=== PATIENT | male | born 1945 | race Caucasian/White ===

== ENCOUNTER 2017-02-10 11:23 | Emergency (ER) | payer OTHER ==
[~2017-02-10] VITALS: Ht 177.8 cm; Wt 102.0 kg
[~2017-02-10 11:23] MED LIST: ASPI81TA81; BUSP5TAB PO; CITA10TA4 PO; CLOP75TA PO; GUAI400T32 PO; LEVO50TA4 PO; OMEP40CA2 PO; PRAV40TA2 PO; PRIM50TA5 PO; [UNRECOGNIZED DRUG - REMARK]
[2017-02-10 11:25] VITALS: BP 175/111; PULSE 82; RESP 16; TEMP 97.7; O2SAT 99
[2017-02-10] MEDS ORDERED: PAXI10TA8 PO (11:49)
[2017-02-10] MEDS ORDERED: BUSP10TA PO (11:49)
[2017-02-10] MEDS ORDERED: SODIUM CHLORIDE 0.9% FLUSH 10 ML FLUSH IVF PRN (12:00)
--- NOTE | 2017-02-10 12:04 | PD ---
HPI Chief Complaint: Medical Clearance Time Seen by Provider: 11:46 Travel History International Travel<30 days: No Contact w/Intl Traveler<30days: No Traveled to known affect area: No History of Present Illness HPI Patient comes in for evaluation of his elevated blood pressure at the advice of his primary care doctor, Dr. Jeffrey. Patient states over the past year he's been experiencing dyspnea on exertion that was being treated with an inhaler that initially showed some improvement of his symptoms. Patient reports he can only walk a few feet without getting short of breath. reports that he had lost weight which improved his breathing however he is since gained the weight back causing him to have the same breathing problems. Patient also reports intermittent headaches over the past 2 or more months in the frontal lobe without radiation. Patient states headaches become more constant over the past month. Patient states he was taking ibuprofen for these that was helping, however they stopped helping and he quit taking it about a week ago. Patient denies any chest pain, neck pain, change in vision, dizziness, bowel pain, loss change in bowel or bladder, back pain, or numbness or tingling anywhere. Patient reports that he was sent in by his primary care doctor to make sure it wasn't something more significant than just "anxiety". Patient states that he does not always stay in the hospital secondary to having company coming over later today. PFSH Past Medical History Hx Anticoagulant Therapy: Yes (PLAVIX) Arthritis: Yes Asthma: No Blood Disorders: No Anxiety: Yes Depression: No Heart Rhythm Problems: Yes Cancer: No Cardiac Catheterization: Yes Cardiovascular Problems: Yes High Cholesterol: Yes Chest Pain: Yes Congestive Heart Failure: No COPD: Yes Cerebrovascular Accident: Yes (TIA) Diabetes: No Diminished Hearing: No Endocrine: Yes Gastrointestinal Disorders: Yes (GERD) GERD: Yes Genitourinary: No Hepatitis: No Hiatal Hernia: No Hypertension: Yes Immune Disorder: No Implanted Vascular Access Dvce: Yes Musculoskeletal: Yes (Back) Neurologic: Yes (Tremors) Psychiatric: No Reproductive: No Respiratory: Yes Seizures: No Sleep Apnea: No Thyroid Disease: Yes Tetanus Vaccination: > 5 Years Influenza Vaccination: Yes PNEUMOCCOCAL Vaccine (Year): 1 Past Surgical History Abdominal Surgery: No AICD: No Body Medical Devices: Spinal Chord Stimulator Cardiac Surgery: No Coronary Artery Bypass Graft: No Eye Surgery: No Joint Replacement: No Neurologic Surgery: Yes (spinal stimulator placed 2011/ REPLACED 2012) Oral Surgery: No Pacemaker: No Thoracic Surgery: No Other Surgery: Yes Social History Alcohol Use: No Tobacco Use: No Substance Use: No Allergies-Medications (Allergen,Severity, Reaction): Coded Allergies: amoxicillin (Unverified Allergy, Unknown, 02/10/17) PT DOES NOT KNOW THE REASON HE IS ALLERGIC Reported Meds & Prescriptions Reported Meds & Active Scripts Active Hydrochlorothiazide 12.5 Mg Cap 12.5 Mg PO DAILY Reported Paxil (Paroxetine HCl) 10 Mg Tab 40 Mg PO DAILY Buspirone (Buspirone HCl) 10 Mg Tab 10 Mg PO TID [brething tx] Guaifenesin 400 Mg Tab 1,200 Mg PO PRN Primidone 50 Mg Tab 50 Mg PO BID Buspirone (Buspirone HCl) 5 Mg Tab 5 Mg PO TID Omeprazole 40 Mg Cap 40 Mg PO DAILY Levothyroxine (Levothyroxine Sodium) 50 Mcg Tab 50 Mcg PO DAILY Clopidogrel (Clopidogrel Bisulfate) 75 Mg Tab 75 Mg PO DAILY Citalopram (Citalopram Hydrobromide) 10 Mg Tab 10 Mg PO DAILY Aspir-81 (Aspirin) 81 Mg Tabdr Pravastatin 40 Mg Tab 40 Mg PO DAILY Review of Systems Except as stated in HPI: all other systems reviewed are Neg Physical Exam Narrative GENERAL: Well-developed, overly nourished, in no acute distress, and non-ill appearing. Patient does seem somewhat anxious. SKIN: Focused skin assessment warm and dry. HEAD: Atraumatic. Normocephalic. EYES: Pupils equal and round. EOMI. No scleral icterus. No injection or drainage. ENT: No nasal bleeding or discharge. Mucous membranes pink and moist. NECK: Trachea midline. No JVD. Supple. No nuclear rigidity. CARDIOVASCULAR: Regular rate and rhythm. No murmur appreciated. RESPIRATORY: No accessory muscle use. No respiratory distress. Clear to auscultation. Breath sounds equal bilaterally. GASTROINTESTINAL: Abdomen soft, non-tender, nondistended, and no guarding. Hepatic and splenic margins not palpable. Normal bowel sounds 4. No pulsatile mass. MUSCULOSKELETAL: No obvious deformities. No clubbing. No cyanosis. No edema. Full range of motion. NEUROLOGICAL: Awake and alert. No obvious cranial nerve deficits. Motor grossly within normal limits. Normal speech. PSYCHIATRIC: Appropriate mood and affect; insight and judgment normal. Data Data Last Documented VS Vital Signs Date Time Temp Pulse Resp B/P (MAP) Pulse Ox O2 Delivery O2 Flow Rate FiO2 02/10/17 12:44 78 20 153/91 (111) 93 Room Air 02/10/17 11:25 97.7 Orders Orders Complete Blood Count With Diff (02/10/17 11:55) Comprehensive Metabolic Panel (02/10/17 11:55) B-Type Natriuretic Peptide (02/10/17 11:55) Act Partial Throm Time (Ptt) (02/10/17 11:55) Prothrombin Time / Inr (Pt) (02/10/17 11:55) Magnesium (Mg) (02/10/17 11:55) Ckmb (Isoenzyme) Profile (02/10/17 11:55) Troponin I (02/10/17 11:55) Urinalysis - C+S If Indicated (02/10/17 11:55) Iv Access Insert/Monitor (02/10/17 11:55) Electrocardiogram (02/10/17 11:55) Ecg Monitoring (02/10/17 11:55) Oximetry (02/10/17 11:55) Oxygen Administration (02/10/17 11:55) Chest, Single Ap (02/10/17 11:55) Sodium Chloride 0.9% Flush (Ns Flush) (02/10/17 12:00) Ct Brain W/O Iv Contrast(Rout) (02/10/17 11:55) Resp Home Oxygen Walk Test (02/10/17 ) Thyroid Stimulating Hormone (02/10/17 12:02) Lorazepam Inj (Ativan Inj) (02/10/17 12:15) Hydrochlorothiazide (Microzide) (02/10/17 14:30) Ed Discharge Order (02/10/17 14:30) Labs Laboratory Tests Test 02/10/17 12:00 02/10/17 12:45 White Blood Count 8.2 TH/MM3 Red Blood Count 4.79 MIL/MM3 Hemoglobin 15.5 GM/DL Hematocrit 43.6 % Mean Corpuscular Volume 90.9 FL Mean Corpuscular Hemoglobin 32.3 PG Mean Corpuscular Hemoglobin Concent 35.5 % Red Cell Distribution Width 13.2 % Platelet Count 172 TH/MM3 Mean Platelet Volume 7.8 FL Neutrophils (%) (Auto) 77.9 % Lymphocytes (%) (Auto) 13.1 % Monocytes (%) (Auto) 6.9 % Eosinophils (%) (Auto) 1.8 % Basophils (%) (Auto) 0.3 % Neutrophils # (Auto) 6.4 TH/MM3 Lymphocytes # (Auto) 1.1 TH/MM3 Monocytes # (Auto) 0.6 TH/MM3 Eosinophils # (Auto) 0.1 TH/MM3 Basophils # (Auto) 0.0 TH/MM3 CBC Comment DIFF FINAL Differential Comment Prothrombin Time 11.0 SEC Prothromb Time International Ratio 1.1 RATIO Activated Partial Thromboplast Time 24.0 SEC Blood Urea Nitrogen 18 MG/DL Creatinine 0.84 MG/DL Random Glucose 93 MG/DL Total Protein 7.2 GM/DL Albumin 3.9 GM/DL Calcium Level 9.0 MG/DL Magnesium Level 2.3 MG/DL Alkaline Phosphatase 65 U/L Aspartate Amino Transf (AST/SGOT) 21 U/L Alanine Aminotransferase (ALT/SGPT) 29 U/L Total Bilirubin 0.2 MG/DL Sodium Level 139 MEQ/L Potassium Level 4.3 MEQ/L Chloride Level 105 MEQ/L Carbon Dioxide Level 25.0 MEQ/L Anion Gap 9 MEQ/L Estimat Glomerular Filtration Rate 91 ML/MIN Total Creatine Kinase 95 U/L Troponin I LESS THAN 0.02 NG/ML B-Type Natriuretic Peptide 51 PG/ML Thyroid Stimulating Hormone 3rd Gen 2.160 uIU/ML Urine Color LIGHT-YELLOW Urine Turbidity CLEAR Urine pH 6.0 Urine Specific [place] 1.006 Urine Protein NEG mg/dL Urine Glucose (UA) NEG mg/dL Urine Ketones NEG mg/dL Urine Occult Blood NEG Urine Nitrite NEG Urine Bilirubin NEG Urine Urobilinogen LESS THAN 2.0 MG/DL Urine Leukocyte Esterase MOD Urine RBC LESS THAN 1 /hpf Urine WBC 4 /hpf Urine Mucus FEW /lpf Microscopic Urinalysis Comment CULT NOT INDICATED MDM Medical Decision Making Medical Screen Exam Complete: Yes Emergency Medical Condition: Yes Interpretation(s) EKG reviewed by Dr. Cole shows sinus rhythm with occasional PVCs. Ventricular rate is 77. No STEMI. Last Impressions Head CT 02/10/17 4887 Signed Impressions: Service Date/Time: January 12:26 - CONCLUSION: Normal examination for a patient of this age. No significant change has occurred. Pollo Vogt MD Chest X-Ray 02/10/17 1155 Signed Impressions: Service Date/Time: January 12:07 - CONCLUSION: No acute disease Sarbjit Ureña MD Differential Diagnosis Uncontrolled hypertension, symptomatic hypertension, hypertension urgency, CHF, COPD exacerbation, intracranial hemorrhage, metabolic disturbance, renal failure , other Narrative Course The patient presented with a chief complaint of elevated blood pressures and headache. The patient has symptoms of a headache which was slow in onset over the past couple of months. The patient denied changes in vision, nausea, vomiting, dizziness, weakness or loss of sensation. Headache is nonspecific. Exam is unremarkable. The patient is in no distress and the patients neurological exam is normal, neck is supple and without meningismus. The headache is not consistent with meningitis or infection, nor is it consistent with intracranial bleed (SAH etc.), carotid dissection, nor mass by history and examination. The patient denied and chest, back or abdominal pain. The patient also denied any shortness of breath, orthopnea or PND. The patient denies any edema to extremities. The patients blood pressures at discharge were at an acceptable level. I discussed with the patient to follow up with a primary care physician for continued outpatient evaluation and potential continuation/ adjustment of blood pressure medications. Return warnings were given to the patient and the patient agreed with plan of care. Patient in no obvious distress upon re-evaluation. All pertinent laboratory/ Radiology result(s) discussed with patient/family. Discussed patient with Dr. Cole who saw and evaluated and recommends starting patient on HCTZ with outpatient follow up. Any questions/concerns in reference to patient diagnosis/ condition discussed and clarified prior to patient's discharge. Reinforced sheer importance of close follow up with patient's primary physician or primary care clinic. Instructed patient to return to ED immediately, if symptoms return/ worsen. Patient showed understanding of above instructions. Further instructions and recommendations were detailed in discharge paperwork. Patient ambulated without difficulty out of ED at discharge. Diagnosis Primary Impression: Uncontrolled hypertension Patient Instructions: General Instructions, Hypertension (ED) Additional Instructions: Follow-up with your primary care physician next week for reevaluation. Take all medication as prescribed. Keep a blood pressure log checking her blood pressure twice daily and take this when you follow-up with your primary care doctor. Return to the emergency department if symptoms get worse. Med/Other Pt SpecificInfo: Prescription(s) given Scripts Hydrochlorothiazide (Hydrochlorothiazide) 12.5 Mg Cap 12.5 MG PO DAILY, #14 CAP 0 Refills Prov: Joe Cole MD 02/10/17 Disposition: 01 DISCHARGE HOME Condition: Srinivas Green Feb 10, 2017 12:04
[2017-02-10] MEDS ORDERED: LORazepam 2 MG/ML VIAL IV PUSH ONE (12:15)
[2017-02-10 12:23] LABS: AUTOMATED NEUTROPHIL # 6.4 TH/MM3 (1.8-7.7); BASOPHIL % 0.3 % (0.0-2.0); EOSINOPHIL # 0.1 TH/MM3 (0-0.4); EOSINOPHIL % 1.8 % (0.0-4.0); HEMATOCRIT 43.6 % (39.0-51.0); HEMOGLOBIN 15.5 GM/DL (13.0-17.0); LYMPH % 13.1 % (9.0-44.0); LYMPHOCYTE # 1.1 TH/MM3 (1.0-4.8); MEAN CELL VOLUME 90.9 FL (80.0-100.0); MEAN CORPUSCULAR HEMOGLOBIN 32.3 PG (27.0-34.0); MEAN CORPUSCULAR HGB CONC 35.5 % (32.0-36.0); MEAN PLATELET VOLUME 7.8 FL (7.0-11.0); MONO % 6.9 % (0.0-8.0); MONOCYTE # 0.6 TH/MM3 (0-0.9); NEUT % 77.9 % (16.0-70.0); PLATELET COUNT 172 TH/MM3 (150-450); RED BLOOD COUNT 4.79 MIL/MM3 (4.50-5.90); RED CELL DISTRIBUTION WIDTH 13.2 % (11.6-17.2); WHITE BLOOD COUNT 8.2 TH/MM3 (4.0-11.0)
[2017-02-10 12:25] LABS: INTERNATIONAL NORMALIZED RATIO 1.1 RATIO
--- NOTE | 2017-02-10 12:26 | RADRPT ---
EXAM DATE/TIME: 02/10/2017 12:07 [facility] COMPARISON: CHEST SINGLE AP, February 06, 2016, 13:02. INDICATIONS : Short of breath, sent by the dr. MEDICAL HISTORY : anxiety, high blood pressure, mini strokes SURGICAL HISTORY : None. ENCOUNTER: Initial ACUITY: 1 day PAIN SCORE: 0/10 LOCATION: Bilateral chest FINDINGS: A single view of the chest demonstrates the lungs to be symmetrically aerated without evidence of mas s, infiltrate or effusion. The cardiomediastinal contours are unremarkable. Osseous structures are intact. Note of previous cervical hardware fusion and thoracic spinal stimulator. CONCLUSION: No acute disease Sarbjit Ureña MD on February 10, 2017 at 12:24 Board Certified Radiologist. This report was verified electronically.
--- NOTE | 2017-02-10 12:42 | RADRPT ---
EXAM DATE/TIME: 02/10/2017 12:26 [facility] COMPARISON: CT BRAIN W/O CONTRAST, February 20, 2014, 10:01. INDICATIONS : Hypertensive headache. RADIATION DOSE: 34.95 CTDIvol (mGy) MEDICAL HISTORY : Cardiovascular disease. Hypertension. Chronic obstructive pulmonary disease. SURGICAL HISTORY : None. ENCOUNTER: Initial ACUITY: 3 months PAIN SCALE: 5/10 LOCATION: Bilateral cranial TECHNIQUE: Multiple contiguous axial images were obtained of the head. Using automated exposure control and adj ustment of the mA and/or kV according to patient size, radiation dose was kept as low as reasonably a chievable to obtain optimal diagnostic quality images. DICOM format image data is available electro nically for review and comparison. FINDINGS: CEREBRUM: The ventricles are normal for age. No evidence of midline shift, mass lesion, hemorrhage or acute in farction. No extra-axial fluid collections are seen. POSTERIOR FOSSA: The cerebellum and brainstem are intact. The 4th ventricle is midline. The cerebellopontine angle i s unremarkable. EXTRACRANIAL: The visualized portion of the orbits is intact. SKULL: The calvaria is intact. No evidence of skull fracture. CONCLUSION: Normal examination for a patient of this age. No significant change has occurred. Pollo Vogt MD on February 10, 2017 at 12:39 Board Certified Radiologist. This report was verified electronically.
[2017-02-10 12:43] LABS: ALKALINE PHOSPHATASE 65 U/L (45-117); TOTAL BILIRUBIN ADULT 0.2 MG/DL (0.2-1.0); TOTAL PROTEIN 7.2 GM/DL (6.4-8.2); TROPONIN I LESS THAN 0.02 NG/ML (0.02-0.05)
[2017-02-10 12:44] VITALS: BP 153/91; PULSE 78; RESP 20; O2SAT 93
[2017-02-10 12:52] LABS: ALBUMIN 3.9 GM/DL (3.4-5.0); ALT (GPT) 29 U/L (12-78); AST (GOT) 21 U/L (15-37); BLOOD UREA NITROGEN 18 MG/DL (7-18); CHLORIDE 105 MEQ/L (98-107); CREATININE 0.84 MG/DL (0.60-1.30); GLOMERULAR FILTRATION RATE 91 ML/MIN (>89); GLUCOSE,RANDOM 93 MG/DL (74-106); MAGNESIUM 2.3 MG/DL (1.5-2.5); SODIUM (NA) 139 MEQ/L (136-145)
[2017-02-10 13:07] LABS: BILIRUBIN, URINE NEG (NEG); BLOOD, URINE NEG (NEG); GLUCOSE,URINE NEG (NEG); KETONE, URINE NEG (NEG); MUCUS URINE FEW /lpf (OCC); NITRITE,URINE NEG (NEG); URINE COLOR LIGHT-YELLOW (YELLW/STRAW); URINE LEUKOCYTE ESTERASE MOD (NEG)
--- NOTE | 2017-02-10 14:00 | PD ---
Data Data Last Documented VS Vital Signs Date Time Temp Pulse Resp B/P (MAP) Pulse Ox O2 Delivery O2 Flow Rate FiO2 02/10/17 15:37 66 20 153/95 (114) 94 02/10/17 12:44 Room Air 02/10/17 11:25 97.7 Orders Orders Complete Blood Count With Diff (02/10/17 11:55) Comprehensive Metabolic Panel (02/10/17 11:55) B-Type Natriuretic Peptide (02/10/17 11:55) Act Partial Throm Time (Ptt) (02/10/17 11:55) Prothrombin Time / Inr (Pt) (02/10/17 11:55) Magnesium (Mg) (02/10/17 11:55) Ckmb (Isoenzyme) Profile (02/10/17 11:55) Troponin I (02/10/17 11:55) Urinalysis - C+S If Indicated (02/10/17 11:55) Iv Access Insert/Monitor (02/10/17 11:55) Electrocardiogram (02/10/17 11:55) Ecg Monitoring (02/10/17 11:55) Oximetry (02/10/17 11:55) Oxygen Administration (02/10/17 11:55) Chest, Single Ap (02/10/17 11:55) Sodium Chloride 0.9% Flush (Ns Flush) (02/10/17 12:00) Ct Brain W/O Iv Contrast(Rout) (02/10/17 11:55) Resp Home Oxygen Walk Test (02/10/17 ) Thyroid Stimulating Hormone (02/10/17 12:02) Lorazepam Inj (Ativan Inj) (02/10/17 12:15) Hydrochlorothiazide (Microzide) (02/10/17 14:30) Ed Discharge Order (02/10/17 14:30) Labs Laboratory Tests Test 02/10/17 12:00 02/10/17 12:45 White Blood Count 8.2 TH/MM3 Red Blood Count 4.79 MIL/MM3 Hemoglobin 15.5 GM/DL Hematocrit 43.6 % Mean Corpuscular Volume 90.9 FL Mean Corpuscular Hemoglobin 32.3 PG Mean Corpuscular Hemoglobin Concent 35.5 % Red Cell Distribution Width 13.2 % Platelet Count 172 TH/MM3 Mean Platelet Volume 7.8 FL Neutrophils (%) (Auto) 77.9 % Lymphocytes (%) (Auto) 13.1 % Monocytes (%) (Auto) 6.9 % Eosinophils (%) (Auto) 1.8 % Basophils (%) (Auto) 0.3 % Neutrophils # (Auto) 6.4 TH/MM3 Lymphocytes # (Auto) 1.1 TH/MM3 Monocytes # (Auto) 0.6 TH/MM3 Eosinophils # (Auto) 0.1 TH/MM3 Basophils # (Auto) 0.0 TH/MM3 CBC Comment DIFF FINAL Differential Comment Prothrombin Time 11.0 SEC Prothromb Time International Ratio 1.1 RATIO Activated Partial Thromboplast Time 24.0 SEC Blood Urea Nitrogen 18 MG/DL Creatinine 0.84 MG/DL Random Glucose 93 MG/DL Total Protein 7.2 GM/DL Albumin 3.9 GM/DL Calcium Level 9.0 MG/DL Magnesium Level 2.3 MG/DL Alkaline Phosphatase 65 U/L Aspartate Amino Transf (AST/SGOT) 21 U/L Alanine Aminotransferase (ALT/SGPT) 29 U/L Total Bilirubin 0.2 MG/DL Sodium Level 139 MEQ/L Potassium Level 4.3 MEQ/L Chloride Level 105 MEQ/L Carbon Dioxide Level 25.0 MEQ/L Anion Gap 9 MEQ/L Estimat Glomerular Filtration Rate 91 ML/MIN Total Creatine Kinase 95 U/L Troponin I LESS THAN 0.02 NG/ML B-Type Natriuretic Peptide 51 PG/ML Thyroid Stimulating Hormone 3rd Gen 2.160 uIU/ML Urine Color LIGHT-YELLOW Urine Turbidity CLEAR Urine pH 6.0 Urine Specific [place] 1.006 Urine Protein NEG mg/dL Urine Glucose (UA) NEG mg/dL Urine Ketones NEG mg/dL Urine Occult Blood NEG Urine Nitrite NEG Urine Bilirubin NEG Urine Urobilinogen LESS THAN 2.0 MG/DL Urine Leukocyte Esterase MOD Urine RBC LESS THAN 1 /hpf Urine WBC 4 /hpf Urine Mucus FEW /lpf Microscopic Urinalysis Comment CULT NOT INDICATED MDM Medical Record Reviewed: Yes Supervised Visit with PIPE: Yes Narrative Course I, Dr. Cole, have reviewed the advance practice practitioner's documentation and am in agreement, met with the patient face to face, made the diagnosis, and the medical decision making was done by me. *My assessment and Findings: Please refer to mid level note. Patient has hypertension and anxiety. His workup today is essentially unremarkable. We have control his blood pressure. He suitable for discharge home with the discussion of return precautions having proceeded his departure. Scripts Hydrochlorothiazide (Hydrochlorothiazide) 12.5 Mg Cap 12.5 MG PO DAILY, #14 CAP 0 Refills Prov: Joe Cole MD 02/10/17 Joe Cole MD Feb 10, 2017 14:00
[2017-02-10] MEDS ORDERED: HYDR12.57 PO (14:25)
[2017-02-10] MEDS ORDERED: HYDROCHLOROTHIAZIDE 12.5 MG CAP PO ONE (14:30)
[2017-02-10 15:37] VITALS: BP 153/95
--- NOTE | 2017-02-11 14:55 | EKG ---
Date Performed: 02/10/2017 Time Performed: 12:42:00 PTAGE: 71 years EKG: Sinus rhythm WITH OCCASIONAL SUPRAVENTRICULAR PREMATURE COMPLEXES BORDERLINE LEFT AXIS DEVIATION Since previous t racing, no significant change noted BORDERLINE ECG PREVIOUS TRACING : 10/02/2014 22.43 DOCTOR: Jimmy Doran Interpretating Date/Time 02/11/2017 14:53:35
== END 2017-02-10 15:38 | disposition home or self-care (01) ==
LOC: NEPC 11:23
DX: I10 Essential (primary) hypertension (principal); E07.9 Disorder of thyroid, unspecified; E78.00 Pure hypercholesterolemia, unspecified; K21.9 Gastro-esophageal reflux disease without esophagitis; F41.9 Anxiety disorder, unspecified; J44.9 Chronic obstructive pulmonary disease, unspecified; Z79.899 Other long term (current) drug therapy
CPT/HCPCS: 70450; 71010; 80053; 81001; 82550; 83735; 83880; 84443; 84484; 85025; 85610; 85730; 93005; 94620; 96374; 99285; J2060

== ENCOUNTER 2017-08-03 02:45 | Emergency (ER) | payer OTHER ==
[~2017-08-03] VITALS: Ht 177.8 cm; Wt 102.0 kg
[~2017-08-03 02:45] MED LIST changes: -ASPI81TA81; +ASPI81TA81 PO; +BUSP10TA PO; +HYDR12.57 PO; +PAXI10TA8 PO
[2017-08-03 02:51] VITALS: BP 145/81; PULSE 70; RESP 19; TEMP 97.6; O2SAT 97
[2017-08-03] MEDS ORDERED: DEXAMETHASONE SOD PHOS 20 MG/5 ML VIAL IM ONE (03:30)
[2017-08-03] MEDS ORDERED: ORPHENADRINE INJ 60 MG/2 ML AMP IM ONE (03:30)
--- NOTE | 2017-08-03 03:47 | PD ---
HPI Chief Complaint: Back/ Neck Pain or Injury Time Seen by Provider: 03:22 Travel History International Travel<30 days: No Contact w/Intl Traveler<30days: No Traveled to known affect area: No History of Present Illness HPI 72-year-old male presents to the emergency department for complaint of exacerbation of neck pain and right upper extremity pain with known cervical disc disease and nerve impingement with radiculopathy. Patient is scheduled to have surgical intervention by his neurosurgeon Dr. Castillo, 08/08/17. Patient had been on meloxicam. Patient has discontinued any medications/anti- inflammatories or muscle relaxants in anticipation of his surgery. Patient has stopped all blood thinning agents. Patient states no new numbness tingling or weakness of the upper extremity but increased pain to the neck and arm therefore decided come to the emergency room because now he is having difficulty finding a position of comfort and pain is becoming intolerable. Patient did not contact his neurosurgeon regarding his increasing pain related symptoms. Patient has extensive past medical history that includes COPD, diabetes hypertension dyslipidemia TIA and hypothyroidism. Patient does not report any chest pain mid scapular pain referred neck jaw back left upper extremity or abdominal pain. No shortness of breath no sweats no nausea no vomiting. No recent febrile illness. No recent injury or fall. Patient rates his pain 10/10 in intensity. Patient is unable to identify specific exacerbating or alleviating factors. PFSH Past Medical History Narrative Medical TIA dyslipidemia hypertension COPD CVA TIA dyslipidemia diabetes hypothyroidism cervical disc disease cervical radiculopathy herniorrhaphy implanted spinal stimulator; occasional alcohol use; nursing notes reviewed Hx Anticoagulant Therapy: Yes (Plavix) Arthritis: Yes Asthma: No Blood Disorders: No Anxiety: Yes Depression: No Heart Rhythm Problems: Yes Cancer: No Cardiac Catheterization: Yes Cardiovascular Problems: Yes (HTN) High Cholesterol: Yes Chest Pain: Yes Congestive Heart Failure: No COPD: Yes Cerebrovascular Accident: Yes (TIA) Diabetes: No Diminished Hearing: No Endocrine: Yes Gastrointestinal Disorders: Yes (GERD) GERD: Yes Genitourinary: No Hepatitis: No Hiatal Hernia: No Hypertension: Yes Immune Disorder: No Implanted Vascular Access Dvce: Yes Musculoskeletal: Yes (Back) Neurologic: Yes (Tremors) Psychiatric: No Reproductive: No Respiratory: Yes Seizures: No Sleep Apnea: No Thyroid Disease: Yes Tetanus Vaccination: < 5 Years PNEUMOCCOCAL Vaccine (Year): 1 Past Surgical History Abdominal Surgery: No AICD: No Body Medical Devices: Spinal Chord Stimulator Cardiac Surgery: No Coronary Artery Bypass Graft: No Eye Surgery: No Joint Replacement: No Neurologic Surgery: Yes (spinal stimulator placed 2011/ REPLACED 2012) Oral Surgery: No Pacemaker: No Thoracic Surgery: No Other Surgery: Yes Social History Alcohol Use: Yes (occaisonally) Tobacco Use: No Substance Use: No Allergies-Medications (Allergen,Severity, Reaction): Coded Allergies: amoxicillin (Unverified Allergy, Unknown, 02/10/17) PT DOES NOT KNOW THE REASON HE IS ALLERGIC Reported Meds & Prescriptions Reported Meds & Active Scripts Active Hydrochlorothiazide 12.5 Mg Cap 12.5 Mg PO DAILY Reported Paxil (Paroxetine HCl) 10 Mg Tab 40 Mg PO DAILY Buspirone (Buspirone HCl) 10 Mg Tab 10 Mg PO TID [brething tx] Guaifenesin 400 Mg Tab 1,200 Mg PO PRN Primidone 50 Mg Tab 50 Mg PO BID Buspirone (Buspirone HCl) 5 Mg Tab 5 Mg PO TID Omeprazole 40 Mg Cap 40 Mg PO DAILY Levothyroxine (Levothyroxine Sodium) 50 Mcg Tab 50 Mcg PO DAILY Clopidogrel (Clopidogrel Bisulfate) 75 Mg Tab 75 Mg PO DAILY Citalopram (Citalopram Hydrobromide) 10 Mg Tab 10 Mg PO DAILY Aspir-81 (Aspirin) 81 Mg Tabdr Pravastatin 40 Mg Tab 40 Mg PO DAILY Review of Systems Except as stated in HPI: all other systems reviewed are Neg General / Constitutional: No: Fever, Chills Eyes: No: Visual changes HENT: Positive: Neck Pain, No: Headaches Cardiovascular: No: Chest Pain or Discomfort Respiratory: No: Shortness of Breath Gastrointestinal: No: Nausea, Vomiting Genitourinary: No: Flank Pain Musculoskeletal: Positive: Pain (Neck/), No: Limited ROM (right upper extremity ) Skin: No Rash Neurologic: Positive: Weakness, Focal Abnormalities, No: Dizziness, Syncope, Headache, Change in Mentation, Paresthesia Psychiatric: Positive: Anxiety Hematologic/Lymphatic: No: Easy Bruising Physical Exam Narrative GENERAL: Well-developed well-nourished male in no respiratory distress and apparent discomfort holding right upper extremity in internal rotation elbow flexion for comfort purposes SKIN: Warm and dry. HEAD: Normocephalic. EYES: No scleral icterus. No injection or drainage. NECK: Supple, trachea midline. No JVD or lymphadenopathy. Tender to palpation along the lower midline cervical spine no bony step-off. CARDIOVASCULAR: Regular rate and rhythm without murmurs, gallops, or rubs. RESPIRATORY: Breath sounds equal bilaterally. No accessory muscle use. GASTROINTESTINAL: Abdomen soft, non-tender, nondistended. MUSCULOSKELETAL: No cyanosis, or edema. Radial pulses 2+ to palpation bilaterally. BACK: Nontender without obvious deformity. No CVA tenderness. Data Data Last Documented VS Vital Signs Date Time Temp Pulse Resp B/P (MAP) Pulse Ox O2 Delivery O2 Flow Rate FiO2 08/03/17 05:23 80 16 140/76 (97) 97 Room Air 08/03/17 02:51 97.6 Orders Orders Dexamethasone Inj (Decadron Inj) (08/03/17 03:30) Orphenadrine Inj (Norflex Inj) (08/03/17 03:30) Hydromorphone Pf Inj (Dilaudid Pf Inj) (08/03/17 04:45) Ondansetron Odt (Zofran Odt) (08/03/17 04:45) Ed Discharge Order (08/03/17 06:02) [facility] Medical Decision Making Medical Screen Exam Complete: Yes Emergency Medical Condition: Yes Medical Record Reviewed: Yes Differential Diagnosis Exacerbation cervical disc disease, HNP, cervical radiculopathy, cervical cord compression Narrative Course Patient given injection of Decadron 10 mg IM and Norflex 60 mg IM Sling and swath applied to right upper extremity Pain persist therefore patient given Zofran 4 mg ODT 1 dose and Dilaudid 1 mg IM At 6 AM pain is improved; patient is stable for outpatient management; patient given prescription for Percocet to take as needed for pain greater than 6/10 in intensity; patient encouraged to follow-up with his neurosurgeon 1 day Diagnosis Primary Impression: Cervical disc disorder with radiculopathy Referrals: Albin Castillo MD 1 day Patient Instructions: General Instructions Additional Instructions: Follow-up with your neurosurgeon call office in a.m. to schedule follow-up appointment Take pain medication as prescribed as needed for pain greater than 6/10 in intensity Return to the emergency department for any concerns or change in condition Med/Other Pt SpecificInfo: Prescription(s) given Scripts Oxycodone-Acetaminophen (Percocet) 5-325 mg Tab 1 TAB PO Q6H Y for PAIN GREATER THAN 6, #5 TAB 0 Refills Prov: Marissa Ibarra MD 08/03/17 Disposition: 01 DISCHARGE HOME Condition: Stable Marissa Ibarra MD Aug 03, 2017 03:47
[2017-08-03] MEDS ORDERED: ONDANSETRON ODT 4 MG TAB PO ONE (04:45)
[2017-08-03] MEDS ORDERED: HYDROmorphone HCL PF 2 MG/ML VIAL IM ONE (04:45)
[2017-08-03 05:23] VITALS: BP 140/76; PULSE 80; RESP 16; O2SAT 97
[2017-08-03] MEDS ORDERED: PERC5TAB12 PO (06:04)
[2017-08-05] MEDS ORDERED: ROSU1TAB8 PO ×2 (11:21)
[2017-08-05] MEDS ORDERED: LEXA10TA PO ×2 (11:21)
[2017-08-05] MEDS ORDERED: MELA5 PO ×2 (11:22)
== END 2017-08-03 06:12 | disposition home or self-care (01) ==
LOC: NEPC 02:45
DX: M50.10 Cervical disc disorder with radiculopathy, unspecified cervical region (principal); M79.601 Pain in right arm; J44.9 Chronic obstructive pulmonary disease, unspecified; E78.5 Hyperlipidemia, unspecified; E11.9 Type 2 diabetes mellitus without complications; I10 Essential (primary) hypertension; E03.9 Hypothyroidism, unspecified; F41.9 Anxiety disorder, unspecified; K21.9 Gastro-esophageal reflux disease without esophagitis; Z86.73 Personal history of transient ischemic attack (TIA), and cerebral infarction without residual deficits
CPT/HCPCS: 29240; 96372; 99283; J1100; J1170; J2360

== ENCOUNTER 2017-08-08 07:23 | Observation (INO) | payer OTHER ==
[~2017-08-08] VITALS: Ht 179.1 cm; Wt 96.2 kg
[~2017-08-08 07:23] MED LIST changes: +ACETAMINOPHEN 1000 MG/100 ML 100 ML IV ONE; +GELFOAM SIZE 100 ONE; +GENTAMICIN SULFATE 80 MG/2 ML VIAL ONE; +LEXA10TA PO; +LIDOCAINE 1%/EPINEPHrine 1:100,000 SOLN 30 ML VIAL ONE; +MELA5 PO; +PERC5TAB12 PO; +ROSU1TAB8 PO; +THROMBIN (TOPICAL) 5,000 UNIT VIAL ONE
[2017-08-08] MEDS ORDERED: CHLORHEXIDINE GLUCONATE 2 % 1 PACK (2 CLOTHS) TOPICAL PRN (07:45)
[2017-08-08] MEDS ORDERED: POVIDONE IODINE 5% (ANTISEPSIS KIT) 4 APPLICATIONS EACH NARE PRN (07:45)
[2017-08-08] MEDS ORDERED: SODIUM CHLORID 0.9% 500 ML IV PRN (07:45)
[2017-08-08] MEDS ORDERED: LACTATED RINGER'S 1000 ML IV PRN (07:45)
[2017-08-08] MEDS ORDERED: METOPROLOL TARTRATE 25 MG TAB PO PRN (07:45)
[2017-08-08] MEDS ORDERED: LACTATED RINGER'S 1000 ML INJ 1,000 ML IV SCH (08:00)
[2017-08-08] MEDS ORDERED: CLINDAMYCIN 600 MG/NS PREMIX 50 ML IV SCH (08:00)
[2017-08-08] MEDS ORDERED: METO50TA PO ×2 (08:42)
[2017-08-08] MEDS ORDERED: KETAMINE HCL 50 MG/5 ML SYRINGE ONE ×2 (09:41→12:05)
[2017-08-08] MEDS ORDERED: CLINDAMYCIN PHOS 600 MG/4 ML VIAL ONE (09:53)
[2017-08-08] MEDS ORDERED: LIDOCAINE HCL 1% PF 5 ML SYRINGE OTHER ONE (12:00)
[2017-08-08] MEDS ORDERED: LACTATED RINGER'S 1000 ML INJ 1,000 ML IV ONE (12:00)
[2017-08-08] MEDS ORDERED: PHENYLEPH/NS 1000 MCG/10 ML SYR IV ONE (12:00)
[2017-08-08] MEDS ORDERED: NORMOSOL R INJ 2,000 ML IV ONE (12:00)
[2017-08-08] MEDS ORDERED: SUCCINYLCHOLINE CHLORIDE 100 MG/5 ML SYRINGE IV PUSH ONE (12:00)
[2017-08-08] MEDS ORDERED: ONDANSETRON HCL 4 MG/2 ML VIAL IV PUSH ONE (12:00)
[2017-08-08] MEDS ORDERED: ePHEDrine/NS 25 MG/5 ML SYRINGE IV ONE (12:00)
[2017-08-08] MEDS ORDERED: PROPOFOL 200 MG/20 ML AMP IV ONE (12:00)
[2017-08-08] MEDS ORDERED: DEXAMETHASONE SOD PHOS 4 MG/ML VIAL IV ONE (12:00)
[2017-08-08] MEDS ORDERED: HYDROmorphone HCL PF 2 MG/ML VIAL ONE (12:04)
[2017-08-08] MEDS ORDERED: PROPOFOL 500 MG/50 ML INJ 150 ML ONE (12:04)
[2017-08-08] MEDS ORDERED: DO NOT ADM ANY ANTICOAGULANT DRUGS PRN (13:41)
[2017-08-08] MEDS ORDERED: NALOXONE HCL 0.4 MG/ML AMP ONE (13:49)
[2017-08-08] MEDS ORDERED: MIDAZOLAM HCL 2 MG/2 ML VIAL ONE (13:50)
[2017-08-08] MEDS ORDERED: MORPHINE SULFATE 4 MG/ML INJ ONE (13:51)
--- NOTE | 2017-08-08 13:54 | RADRPT ---
EXAM DATE: 08/08/2017 1:30 PM EDT AGE/SEX: 72 years / Male INDICATIONS: Hardware removal C5-6, Herniated disk C4-5 fusion, diskectomy hardware placement. CLINICAL DATA: This is the patient's initial encounter. Patient reports that signs and symptoms have been present for 1 day and indicates a pain score of Nonresponsive. MEDICAL/SURGICAL HISTORY: Non-responsive. Non-responsive. COMPARISON: No prior exams available for comparison. FINDINGS: Status post anterior cervical fusion from C4 to C5. Hardware has been removed at C5-C6 which appears fused. Alignment anatomic. CONCLUSION: Anatomic alignment about new fusion C4-C5.. Electronically signed by: Glynn Castro MD 08/08/2017 1:53 PM EDT
[2017-08-08] MEDS ORDERED: *MEPERIDINE 25 MG INJ VIAL PERIprocedural Use ONLY ONE (13:55)
--- NOTE | 2017-08-08 13:58 | PD.OP ---
Operative Report Date of Surgery: Aug 08, 2017 Preoperative Diagnosis: (1) Cervical disc disorder with radiculopathy 1. Cervical degenerative disc disease 2. Right C5 radiculopathy 3. Previous C5-6 ACDF Postoperative Diagnosis: (1) Cervical disc disorder with radiculopathy 1. Cervical degenerative disc disease 2. Right C5 radiculopathy 3. Previous C5-6 ACDF Procedure: 1. C4-5 anterior cervical discectomy, resection posterior osteophytic disc complex, bilateral foraminotomy 2. C4-5 anterior cervical interbody fusion, composite allograft bone 3. C4-5 anterior cervical instrumentation 4. Removal previous C5-6 anterior cervical instrumentation Anesthesia: General Surgeon: Albin Castillo Tire Mechanic(s): Gillian Garcia Operation and Findings: Findings: Extensive posterior ossific disc complex with severe right foraminal stenosis at the C4-5 level. Indications: 72-year-old male status post previous C5-6 ACDF. Now with progressive severe right shoulder and lateral arm pain, C5 distribution. Preoperative imaging study reveals severe right C4-5 foraminal stenosis. Procedure in detail: The patient was brought into the operating room and positioned in supine position on the 3080 table with the head and neck in neutral position. Kingsley catheter was placed. Lines were established by Anesthesia. Gen. endotracheal anesthesia was induced without difficulty, taking care not to significantly flex or extend the patient's neck during intubation and positioning. Leads for intraoperative neuro monitoring were placed and a baseline study obtained. All extremities were appropriately padded. The neck and upper chest were shaved with clippers and sterilely prepped and draped. Appropriate timeout procedure was performed with all personnel present and in agreement 1% Xylocaine with epinephrine was used for local infiltration over the incision site which was made transversely at the left C4-5 level and carried sharply down through the platysma muscle. The exposure was continued medial to the sternocleidomastoid muscle and carotid artery, and lateral to the trachea and esophagus. The prevertebral fascia was elevated away from the anterior longitudinal ligament with a Kitner sponge. The longus coli muscle on each side was elevated with the Kitchen elevator. The self-retaining retractor was placed with the blades beneath the longus coli muscle on each side. The appropriate levels were confirmed with intraoperative C-arm and preoperative imaging studies. The microscope was brought into place and used for the remainder of the procedure including the closure. The previous C5-6 anterior cervical plate was exposed with the Kitchen elevator. The screws removed followed by plate removal. The 14 mm distraction pins were used as needed for gentle distraction during the procedure. The rest of the procedure was performed at the C4-5 level. The anterior osteophyte was resected with the Leksell rongeur. The C4-5 disc and annulus was incised with a 15 blade knife and discectomy performed with pituitary biopsy forceps and straight and angled curettes. The TPS drill with the 5 mm barrel bur was used to decorticate the endplates and removed the majority of the osteophyte along the anterior spinal canal as well as the right and left uncovertebral joint. The thin ligament dissector was used to free up the posterior annulus and ligament from the vertebral body margin. The remainder of the resection of the posterior annulus and ligament as well as the posterior osteophyte and bilateral uncovertebral joint was performed with the 2 and 3 mm thin footplate Kerrison rongeurs. Significant posterior osteophyte was encountered and extensively removed. The posterior vertebral bodies were undercut with the Kerrison rongeur as needed to fully decompress the anterior spinal canal. The appropriate size 7 x 9 lordotic v G2 bone graft was then placed at the C4-5 level with a good fit of the graft. The blunt nerve hook was used to probe beneath the bone graft to ensure that there was no impingement on the thecal sac or exiting nerve roots. The appropriate size Precision anterior cervical plate was then chosen and the bone screws were placed with the 16 mm fixed screws at the caudal most level and the 16 mm variable screws at the cephalad level of the decompression. The screws were firmly secured and the locking cams engaged. The entire construct was checked with intraoperative C-arm and felt to be satisfactory. The 10 English drain was brought out through a small incision in the left lower neck and secured to the skin with nylon suture and attached to sterile suction. The closure was performed with 3-0 Vicryl running for the platysma and interrupted for the subcutaneous closure, with 4-0 Vicryl running for the subcuticular closure. A dressing of sterile Mastisol, Steri-Strips, and Primapore dressing was placed. The patient was placed into a cervical collar, and taken to recovery room in stable condition. All counts were correct at the end of the case. Estimated blood loss was 100 cc No specimen was sent to pathology. Intraoperative neuro monitoring remained stable during the procedure. Albin Castillo MD Aug 08, 2017 13:58
[2017-08-08] MEDS ORDERED: NALOXONE HCL 0.4 MG/ML AMP IV PUSH PRN (14:00)
[2017-08-08] MEDS ORDERED: PANTOPRAZOLE SOD 40 MG DELAYED RELEASE TAB PO PRN (14:15)
[2017-08-08] MEDS ORDERED: HYDROmorphone HCL PF 2 MG/ML VIAL IV PUSH PRN (14:15)
[2017-08-08] MEDS: 1/2 NS + KCL 20 MEQ INJ 1,000 ML IV SCH (15:00)
[2017-08-08] MEDS ORDERED: DIMETHICONE/OXYBENZONE/PADMIATE LIP BALM 4.25 GM TOPICAL ONE (15:18)
[2017-08-08] MEDS: MORPHINE SULFATE 4 MG/ML INJ IV PUSH PRN ×2 (17:42→22:12)
[2017-08-08] MEDS: oxyCODONE/ACETAMINOPHEN 5 MG/325 MG TAB PO PRN (18:50)
[2017-08-08 19:46] VITALS: BP 157/80; PULSE 97; RESP 18; TEMP 98.1; O2SAT 93
[2017-08-08] MEDS ORDERED: MELATONIN 5 MG TAB PO SCH (21:00)
[2017-08-08] MEDS: PRIMIDONE 50 MG TAB PO SCH (22:12)
[2017-08-08] MEDS: busPIRone HCL 5 MG TAB PO SCH (22:12)
[2017-08-09 00:01] VITALS: BP 178/91; PULSE 98; RESP 18; TEMP 98; O2SAT 94
[2017-08-09] MEDS: oxyCODONE/ACETAMINOPHEN 5 MG/325 MG TAB PO PRN (00:50)
[2017-08-09] MEDS: 1/2 NS + KCL 20 MEQ INJ 1,000 ML IV SCH ×2 (01:03→08:25)
[2017-08-09 04:15] VITALS: BP 139/67; PULSE 79; RESP 18; TEMP 98.4; O2SAT 95
[2017-08-09] MEDS ORDERED: LEVOTHYROXINE SODIUM 50 MCG TAB PO SCH (06:00)
[2017-08-09 07:02] LABS: AUTOMATED NEUTROPHIL # 10.2 TH/MM3 (1.8-7.7); BASOPHIL % 0.3 % (0.0-2.0); EOSINOPHIL % 0.4 % (0.0-4.0); HEMOGLOBIN 14.6 GM/DL (13.0-17.0); LYMPH % 8.5 % (9.0-44.0); MEAN CELL VOLUME 91.9 FL (80.0-100.0); MEAN CORPUSCULAR HEMOGLOBIN 30.5 PG (27.0-34.0); MEAN CORPUSCULAR HGB CONC 33.2 % (32.0-36.0); MEAN PLATELET VOLUME 7.7 FL (7.0-11.0); MONOCYTE # 0.8 TH/MM3 (0-0.9); NEUT % 83.8 % (16.0-70.0); PLATELET COUNT 154 TH/MM3 (150-450); RED BLOOD COUNT 4.78 MIL/MM3 (4.50-5.90); WHITE BLOOD COUNT 12.1 TH/MM3 (4.0-11.0)
[2017-08-09 07:06] LABS: BICARBONATE 25.4 MEQ/L (21.0-32.0); CALCIUM 8.2 MG/DL (8.5-10.1); CREATININE 0.83 MG/DL (0.60-1.30)
[2017-08-09 08:00] VITALS: BP 176/89; PULSE 72; RESP 18; TEMP 97.5; O2SAT 93
[2017-08-09] MEDS: busPIRone HCL 5 MG TAB PO SCH (08:22)
[2017-08-09] MEDS: ACETAMINOPHEN/HYDROcodone 325 MG/5 MG TAB PO PRN ×2 (08:23→14:51)
[2017-08-09] MEDS: PRIMIDONE 50 MG TAB PO SCH (08:29)
[2017-08-09] MEDS ORDERED: METOPROLOL TARTRATE 50 MG TAB PO SCH (09:00)
[2017-08-09] MEDS ORDERED: PNEUMOCOCCAL POLYVALENT INJ 25 MCG/0.5 ML SYR IM ONE (09:00)
[2017-08-09] MEDS ORDERED: INFLUENZA VIRUS VACCINE (QUADRIVALENT) 0.5 ML SYR IM ONE (09:00)
[2017-08-09] MEDS ORDERED: ESCITALOPRAM OXALATE 10 MG TAB PO SCH (09:00)
[2017-08-09] MEDS ORDERED: HYDROCHLOROTHIAZIDE 12.5 MG CAP PO SCH (09:00)
[2017-08-09] MEDS: MORPHINE SULFATE 4 MG/ML INJ IV PUSH PRN (11:35)
[2017-08-09 12:15] VITALS: BP 162/94; PULSE 80; RESP 17; TEMP 98; O2SAT 98
--- NOTE | 2017-08-09 16:10 | HHI.NSPN ---
(William Carlton) History Chief Complaint: Some pain to the back of the neck and the right shoulder. (William Carlton) Interval History 08/08: The patient presented to [facility] to have a C4-5 anterior cervical discectomy with resection of a posterior osteophytic disc complex, a bilateral foraminotomy, and an anterior cervical interbody fusion with instrumentation. He also had removal of his previous C5-6 anterior cervical instrumentation. Post -operatively the patient was admitted to a regular med/surg floor for further care. 08/09: When seen this afternoon the patient is sitting up in bed dressed and ready to go home. He reports that he has been up to the chair and ambulating. He is in the [facility] cervical collar. He does have some posterior neck and right shoulder pain. He also endorses a slight frontal headache. The Kingsley catheter has been removed and the patient states that he is having no difficulty voiding. He denies any numbness or tingling to the extremities but does say the right upper is weak from not being used. He had no sensory deficits to the extremities. Upon motor testing he had weakness to the right upper but strength was normal to the left upper and both lower. (William Carlton) System Review Comments CONSTITUTIONAL: Denies any fevers. HEENT: Throat is raspy. No sore throat or difficulty swallowing. NECK: Some pain to the posterior neck. RESPIRATORY: Denies any shortness of breath, wheezing or cough. CARDIOVASCULAR: Denies any chest pain, palpitations or irregular heartbeat. GASTROINTESTINAL: Denies any abdominal pain, nausea or vomiting. GENITOURINARY: Denies any difficulty voiding. MUSCULOSKELETAL: Some pain to the right shoulder and proximal arm. Weakness to the right arm. NEUROLOGICAL: Slight frontal headache. Denies any dizziness, double vision or blurry vision, or any extremity numbness or tingling. (William Carlton) Exam Results 08/07/17 08/07/17 08/08/17 08/08/17 08/09/17 08/09/17 06:00 18:00 06:00 18:00 06:00 18:00 Intake Total 2300 ml Output Total 330 ml 4870 ml 1270 ml Balance 1970 ml -4870 ml -1270 ml Intake Other 2300 ml Output Urine Total 200 ml 4850 ml 1250 ml Drainage Total 30 ml 20 ml 20 ml Estimated Blood Loss 100 ml Vital Signs Date Time Temp Pulse Resp B/P (MAP) Pulse Ox O2 Delivery O2 Flow Rate FiO2 08/09/17 12:15 98.0 80 17 162/94 (116) 98 08/09/17 08:00 97.5 72 18 176/89 (118) 93 08/09/17 04:15 98.4 79 18 139/67 (91) 95 08/09/17 00:01 98.0 98 18 178/91 (120) 94 08/08/17 19:46 98.1 97 18 157/80 (105) 93 08/08/17 19:30 88 14 174/89 (117) 96 Nasal Cannula 2 08/08/17 18:30 100 14 155/98 (117) 96 Nasal Cannula 2 08/08/17 17:30 100 14 167/87 (113) 96 Nasal Cannula 2 08/08/17 16:30 90 14 164/87 (112) 96 Nasal Cannula 2 08/08/17 15:30 84 14 159/80 (106) 96 Nasal Cannula 2 08/08/17 14:30 87 14 168/92 (117) 96 Nasal Cannula 2 08/08/17 14:15 90 14 157/92 (113) 95 Nasal Cannula 2 08/08/17 14:00 90 14 142/85 (104) 95 Nasal Cannula 2 08/08/17 13:40 97.1 91 14 168/94 (118) 96 Nasal Cannula 2 08/08/17 08:15 98.6 66 20 123/82 (96) 96 (William Carlton) Physical Examination GENERAL: The patient is awake & alert sitting up in bed watching TV w/his . His affect is normal and he readily interacts. He is not in any apparent distress. HEENT: Normocephalic, atraumatic. PERRLA 2-3 mm brisk, EOMI. MMM & pink, tongue midline to protrusion, nor oropharyngeal erythema, airway patent. NECK: Holmes J cervical collar in place. Midline cervical spine NTTP. Left anterior neck surgical incision NTTP w/intact dressing, KARINA drain to bulb suction w/serosanguinous drainage. No JVD. Trachea midline. RESPIRATORY: CTAB w/o W/R/R, equal excursion, non-laboured, on RA. CARDIOVASCULAR: S1S2 w/RRR w/o M/G/R, no pedal edema. GASTROINTESTINAL: Abdomen soft, non-tender, positive bowel sounds. MUSCULOSKELETAL: OSBORN w/o difficulty but decreased ROM to RUE 2/2 pain & weakness. TTP to distal posterior right shoulder & proximal arm. Intermittent tremors noted to extremities. NEUROLOGICAL: AAOx3. Speech clear & appropriate. Follows simple commands w/o difficulty. CN II through XII appear grossly intact. Sensation intact to light touch to all extremities. Motor strength to the: LUE is 5/5 to all major flexion & extension muscle groups, to include the wrist flexors & extensors and hand intrinsics. RUE is 2+ to 3/5 to the deltoid, 4+/5 to the biceps, 2+/5 to the triceps, 4+ to 5/5 to the wrist flexors & extensors and 3/5 to the hand intrinsics. LLE is 5/5 to all major flexion & extension muscle groups. RUE is 5/5 to all major flexion & extension muscle groups. Intermittent tremors noted to extremities. (William Carlton) Lab, Micro, Other Results Recent Impressions Cervical Spine X-Ray 08/08/17 0000 Signed Impressions: CONCLUSION: Anatomic alignment about new fusion C4-C5.. Laboratory Tests Test 08/09/17 06:01 White Blood Count 12.1 TH/MM3 Red Blood Count 4.78 MIL/MM3 Hemoglobin 14.6 GM/DL Hematocrit 44.0 % Mean Corpuscular Volume 91.9 FL Mean Corpuscular Hemoglobin 30.5 PG Mean Corpuscular Hemoglobin Concent 33.2 % Red Cell Distribution Width 13.0 % Platelet Count 154 TH/MM3 Mean Platelet Volume 7.7 FL Neutrophils (%) (Auto) 83.8 % Lymphocytes (%) (Auto) 8.5 % Monocytes (%) (Auto) 7.0 % Eosinophils (%) (Auto) 0.4 % Basophils (%) (Auto) 0.3 % Neutrophils # (Auto) 10.2 TH/MM3 Lymphocytes # (Auto) 1.0 TH/MM3 Monocytes # (Auto) 0.8 TH/MM3 Eosinophils # (Auto) 0.0 TH/MM3 Basophils # (Auto) 0.0 TH/MM3 CBC Comment DIFF FINAL Differential Comment Blood Urea Nitrogen 19 MG/DL Creatinine 0.83 MG/DL Random Glucose 118 MG/DL Calcium Level 8.2 MG/DL Sodium Level 138 MEQ/L Potassium Level 3.9 MEQ/L Chloride Level 105 MEQ/L Carbon Dioxide Level 25.4 MEQ/L Anion Gap 8 MEQ/L Estimat Glomerular Filtration Rate 92 ML/MIN (William Carlton) Medical Decision Making Impression and Plan Impression: Postoperative Diagnosis: (1) Cervical disc disorder with radiculopathy 1. Cervical degenerative disc disease 2. Right C5 radiculopathy 3. Previous C5-6 ACDF The patient is doing well post-operatively. He does endorse RUE weakness which seems to be improved from what he says. He continues to have some mild neck and right shoulder pain. O/w he has no sensorimotor deficits. He does have seem to have intermittent tremors to the extremities. Past 24 hrs: Afebrile. Intermittently hypertensive. KARINA drain with 70 mL output since surgery as of shift change this morning. Reviewed labs for today. Mild leukocytosis, most likely inflammatory response to surgery. POD #1 () s/p: 1. C4-5 anterior cervical discectomy, resection posterior osteophytic disc complex, bilateral foraminotomy 2. C4-5 anterior cervical interbody fusion, composite allograft bone 3. C4-5 anterior cervical instrumentation 4. Removal previous C5-6 anterior cervical instrumentation Plan: Neuro checks q4h. Vital signs q4h. I&O q8h. Monitor KARINA drain output. Mobilise patient w/assistance as needed. Holmes J cervical collar at all times. Hold pharmacologic DVT prophylaxis. Mechanical DVT prophylaxis. Regular diet. (William Carlton) Attending Statement Patient seen by William CUELLAR postop day #1. Patient drain output satisfactory for discharge. Drain discontinued Kingsley discontinued Has persistent right upper extremity weakness, stable compared to preoperative. Stable for discharge Follow-up appointment in approximately 10 days (Albin Castillo MD) William Carlton Aug 09, 2017 16:10 Albin Castillo MD Aug 09, 2017 21:53
[2017-08-09 16:14] VITALS: BP 163/92; PULSE 72; RESP 18; TEMP 97.9; O2SAT 97
--- NOTE | 2017-08-09 17:00 | HHI.DCPOC ---
Discharge Care Plan Diagnosis: (1) Cervical spinal stenosis (2) Cervical disc disorder with radiculopathy Your Health Problems Are: Difficulty with ADL Incision/Drains Chronic Pain Goals to Promote Your Health * To prevent worsening of your condition and complications * To maintain your health at the optimal level Directions to Meet Your Goals Take your medications as prescribed Follow your dietary instruction Follow activity as directed Keep your appointments as scheduled Take your immunizations and boosters as scheduled If your symptoms worsen call your PCP, if no PCP go to Urgent Care Center or Emergency Room Smoking is Dangerous to Your Health. Avoid second hand smoke Call the 24-hour hour crisis hotline for domestic abuse at Albin Castillo MD Aug 09, 2017 17:00
--- NOTE | 2017-08-09 21:51 | HHI.DS ---
Discharge Summary Admission Date Aug 08, 2017 at 13:50 Discharge Date: Aug 09, 2017 Admitting Diagnosis Cervical spondylosis and degenerative disc disease Cervical stenosis Cervical radiculopathy (1) Cervical spinal stenosis Diagnosis: Secondary ICD Code: M48.02 - Cervical spinal stenosis Status: Acute (2) Cervical disc disorder with radiculopathy Diagnosis: Principal ICD Code: M50.10 - Cervical disc disorder with radiculopathy Status: Acute CBC/BMP: 08/09/17 0601 08/09/17 0601 Significant Findings Laboratory Tests Test 08/09/17 06:01 White Blood Count 12.1 TH/MM3 (4.0-11.0) Neutrophils (%) (Auto) 83.8 % (16.0-70.0) Lymphocytes (%) (Auto) 8.5 % (9.0-44.0) Neutrophils # (Auto) 10.2 TH/MM3 (1.8-7.7) Blood Urea Nitrogen 19 MG/DL (7-18) Random Glucose 118 MG/DL (74-106) Calcium Level 8.2 MG/DL (8.5-10.1) Hospital Course Patient admitted for C4-5 ACDF, removal of previous C5-6 instrumentation. Patient underwent seizure without complication. Postoperative course uneventful. No significant difficulty with swallowing or hoarseness of voice postoperative. Drain removed on postoperative day #1. Neurologic exam stable postoperative. Stable for discharge home 08/09/2017 Pt Condition on Discharge: Good Discharge Disposition: Discharge Home Discharge Instructions DIET: Follow Instructions for: As Tolerated, No Restrictions ACTIVITIES You can perform: Weight Bearing As Tino Activities to Avoid: Lifting/Bending, Strenuous Activity ADDITIONAL Activity Instructio: cervical collar when out of bed Continued Medications: Aspirin DR (Aspir-81) 81 Mg Tabdr 1 TAB PO DAILY Buspirone (Buspirone) 5 Mg Tab 5 MG PO BID for Anxiety, TAB 0 Refills Clopidogrel (Clopidogrel) 75 Mg Tab 75 MG PO DAILY for Blood Clot Prevention, #30 TAB 0 Refills Escitalopram (Lexapro) 10 Mg Tab 10 MG PO DAILY, #30 TAB 0 Refills Hydrochlorothiazide (Hydrochlorothiazide) 12.5 Mg Cap 12.5 MG PO DAILY, #14 CAP 0 Refills Levothyroxine (Levothyroxine) 50 Mcg Tab 50 MCG PO DAILY for Thyroid, #30 TAB 0 Refills Melatonin (Melatonin) 5 Mg Tab 5 MG PO HS for Provide Good Sleep, TAB 0 Refills Metoprolol Tartrate (Metoprolol Tartrate) 50 Mg Tab 50 MG PO DAILY, #30 TAB 0 Refills Omeprazole (Omeprazole) 40 Mg Cap 40 MG PO DAILY PRN for REFLUX, #30 CAP 0 Refills Oxycodone-Acetaminophen (Percocet) 5-325 mg Tab 1 TAB PO Q6H PRN for PAIN GREATER THAN 6, #5 TAB 0 Refills Primidone (Primidone) 50 Mg Tab 100 MG PO BID for Control Seizures, #60 TAB 0 Refills Rosuvastatin (Rosuvastatin) 20 Mg Tab 20 MG PO DAILY for Cholesterol Management, #30 TAB 0 Refills Albin Castillo MD Aug 09, 2017 21:51
== END 2017-08-09 17:44 | disposition home or self-care (01) ==
LOC: HSDC 07:23 → HSDI 13:50 → N06A 19:38
PROVIDERS: ADMIT Neurological Surgery; ATTEND Neurological Surgery
DX: M48.02 Spinal stenosis, cervical region (principal); M50.10 Cervical disc disorder with radiculopathy, unspecified cervical region; M47.22 Other spondylosis with radiculopathy, cervical region; D72.829 Elevated white blood cell count, unspecified; G89.29 Other chronic pain; R56.9 Unspecified convulsions; I10 Essential (primary) hypertension; J44.9 Chronic obstructive pulmonary disease, unspecified; Z23 Encounter for immunization
CPT/HCPCS: 00600; 20670; 20936; 22551; 22845; 72020; 76000; 80048; 85025; 90732; 94150; 96374; 96375; C1713; G0009; G0378; J0131; J0330; J1100; J1170; J1580; J2175; J2250; J2270; J2310; J2370; J2405; J3010; J7120; L0172; 90471